=== PATIENT | female | born 1965 | race Asian ===

== ENCOUNTER → 2017-02-10 | Outpatient (CLI) | payer OTHER | LOC: FIMAGING 08:37 | PROVIDERS: ATTEND Family Medicine | DX: Z12.31 Encounter for screening mammogram for malignant neoplasm of breast (principal) | CPT/HCPCS: G0202 ==

== ENCOUNTER → 2017-08-19 | Outpatient (CLI) | payer OTHER | LOC: BMCIMAGING 07:51 | PROVIDERS: ATTEND Internal Medicine Rheumatology | DX: M25.561 Pain in right knee (principal); M25.562 Pain in left knee; M06.871 Other specified rheumatoid arthritis, right ankle and foot; M06.872 Other specified rheumatoid arthritis, left ankle and foot; M06.841 Other specified rheumatoid arthritis, right hand; M06.842 Other specified rheumatoid arthritis, left hand ==

== ENCOUNTER → 2017-09-15 | Outpatient (CLI) | payer OTHER | LOC: FIMAGING 07:14 | PROVIDERS: ATTEND Internal Medicine | DX: K76.89 Other specified diseases of liver (principal) ==

== ENCOUNTER → 2017-09-23 | Outpatient (CLI) | payer OTHER ==
[~2017-09-23] MED LIST: GADOBUTROL 10 ML VIAL IVP ONE
== END ==
LOC: FIMAGING 14:59
PROVIDERS: ATTEND Physician Assistant
DX: D44.0 Neoplasm of uncertain behavior of thyroid gland (principal); G95.0 Syringomyelia and syringobulbia; M50.30 Other cervical disc degeneration, unspecified cervical region; Z86.011 Personal history of benign neoplasm of the brain; Z98.890 Other specified postprocedural states
CPT/HCPCS: A9585

== ENCOUNTER → 2017-10-05 | Outpatient (CLI) | payer OTHER | LOC: FIMAGING 12:50 | PROVIDERS: ATTEND Internal Medicine | DX: Z13.820 Encounter for screening for osteoporosis (principal); Z78.0 Asymptomatic menopausal state; M81.0 Age-related osteoporosis without current pathological fracture; D25.2 Subserosal leiomyoma of uterus; N83.201 Unspecified ovarian cyst, right side ==

== ENCOUNTER 2017-11-08 06:43 | Observation (INO) | payer OTHER ==
[2017-11-08] MEDS ORDERED: LR 1,000 ML IV ONE (06:58)
[2017-11-08] MEDS ORDERED: BUPIVACAINE/EPI 0.5% 30 ML SDV ONE (07:45)
--- NOTE | 2017-11-08 07:56 | PDHPUP ---
History & Physical Update H&P update statement: This history and physical update is based on an assessment of the patient which was completed after admission or registration (within 24 hours), but prior to the surgery/procedure. H&P update: H&P reviewed & patient examined, no change in patient's condition since H&P completed
[2017-11-08] MEDS ORDERED: MIDAZOLAM 2 MG/2 ML VIAL ONE (08:00)
[2017-11-08] MEDS ORDERED: MIDAZOLAM 2 MG/2 ML VIAL IVP ONE (08:02)
--- NOTE | 2017-11-08 08:02 | PDANEPAE ---
ANE History of Present Illness 52 yo for thyroidectomy ANE Past Medical History - Cardiovascular History Hx Hypertension: No Hx Arrhythmias: No Hx Chest Pain: No Hx Coronary Artery / Peripheral Vascular Disease: No Hx CHF / Valvular Disease: No Hx Palpitations: No - Pulmonary History Hx COPD: No Hx Asthma/Reactive Airway Disease: No Hx Recent Upper Respiratory Infection: No Hx Oxygen in Use at Home: No Hx Sleep Apnea: No Sleep Apnea Screening Result - Last Documented: Negative - Neurologic History Hx Cerebrovascular Accident: No Hx Seizures: No Hx Dementia: No Neurologic History Comment: hx of brain surgery for benign meningioma - Endocrine History Hx Diabetes: Yes Endocrine History Comment: thyroid mass- biopsy showed possibly cancerous. elevated hgbA1c's on metformin - Renal History Hx Renal Disorders: No - Liver History Hx Hepatic Disorders: No - Neurological & Psychiatric Hx Hx Neurological and Psychiatric Disorders: No - Cancer History Hx Cancer: No - Congenital Disorder History Hx Congenital Disorders: No - GI History Hx Gastrointestinal Disorders: No - Other Health History Other Health History: wears glasses. RA - Chronic Pain History Chronic Pain: Yes (left shoulder pain) - Surgical History Prior Surgeries: bilateral bunionectomy 05/2017. 2008 benign meningioma removed from brain. 2005 right shoulder scope. 2002 right knee scope from skiing accident. colonoscopy this past year ANE Review of Systems Review of Systems: - Exercise capacity METS (RN): 5 METS ANE Patient History - Allergies Allergies/Adverse Reactions: No Allergies [NKDA] Allergy (Verified 11/01/17 13:13) - Home Medications Home medications: home medication list seen and reviewed Home Medications: Methotrexate IM [Methotrexate IM Syringe (RX)] 0.8 ml IM 03/03/12 [Last Taken ] Herbals/Supplements -Info Only 11/01/17 [Last Taken 11/01/17] Latanoprost 11/01/17 [Last Taken 11/07/17] Metformin HCl 11/01/17 [Last Taken 11/02/17] - NPO status NPO Status: no food or drink >8 hours NPO Since - Liquids (Date): 11/08/17 NPO Since - Liquids (Time): 06:00 NPO Since - Solids (Date): 11/07/17 NPO Since - Solids (Time): 20:30 - Anes Hx Anes Hx: no prior problems - Smoking Hx Smoking Status: Never smoked - Family Anes Hx Family Hx Anesthesia Complications: none ANE Labs/Vital Signs - Vital Signs Blood Pressure: 109/78 Heart Rate: 69 Respiratory Rate: 16 O2 Sat (%): 97 Height: 5 ft 7 in Weight: 73.482 kg ANE Physical Exam - Airway Mallampati Score: Class 2 Mouth exam: normal dental/mouth exam - Pulmonary Pulmonary: no respiratory distress - Cardiovascular Cardiovascular: regular rate and rhythym - ASA Status ASA Status: II ANE Anesthesia Plan Anesthesia Plan: general endotracheal anesthesia
[2017-11-08] MEDS ORDERED: REMIFENTANIL HCL 1 MG VIAL ONE ×2 (08:09→10:09)
[2017-11-08] MEDS ORDERED: fentaNYL 100 MCG/2 ML INJ ONE ×2 (08:09)
[2017-11-08] MEDS ORDERED: PROPOFOL/EMULSION 500 MG/50 ML BOTTLE IV ONE ×2 (08:10→10:09)
[2017-11-08] MEDS ORDERED: ROCURONIUM 100 MG/10 ML VIAL ONE (08:13)
[2017-11-08] MEDS ORDERED: DEXAMETHASONE 4 MG/ML VIAL ONE (08:14)
[2017-11-08] MEDS ORDERED: ONDANSETRON 4 MG/2 ML VIAL ONE (08:14)
[2017-11-08] MEDS ORDERED: KETOROLAC 30 MG/1 ML SDV ONE (10:45)
[2017-11-08] MEDS ORDERED: ONDANSETRON 4 MG/2 ML VIAL IVP PRN ×2 (11:20→12:07)
[2017-11-08] MEDS ORDERED: fentaNYL 100 MCG/2 ML INJ IVP PRN (11:20)
[2017-11-08] MEDS ORDERED: HYDROmorphONE/DILAUDID 1 MG/ML INJ IVP PRN (11:20)
[2017-11-08] MEDS ORDERED: NALOXONE HCL 0.4 MG/ML INJ IVP PRN (11:20)
[2017-11-08] MEDS ORDERED: PROMETHAZINE HCL 25 MG/ML INJ IVP PRN (11:20)
[2017-11-08] MEDS ORDERED: ZOLPIDEM TARTRATE 5 MG TAB PO PRN (12:07)
[2017-11-08] MEDS ORDERED: HYDROCODONE/APAP 5/325 TAB PO PRN (12:07)
[2017-11-08] MEDS ORDERED: ACETAMINOPHEN 325 MG TAB PO PRN (12:07)
[2017-11-08] MEDS ORDERED: HYDROCODONE/APAP 5/325 TAB ONE (12:22)
--- NOTE | 2017-11-08 13:28 | POSTANESTH ---
Post Anesthetic Evaluation Cardiovascular Status: Normal, Stable Respiratory Status: Tx Decrease in SpO2 Level of Consciousness/Mental Status: Can Participate in Eval Pain Control: Adequate, Prn Tx Ordered Nausea/Vomiting Control: Adequate, Prn Tx Ordered Complications Possibly Related to Anesthesia: None Noted
[2017-11-08] MEDS: KETOROLAC 15 MG/1 ML SDV IVP SCH (18:08)
--- NOTE | 2017-11-08 20:34 | GOP ---
[f rep st] OPERATIVE REPORT DATE OF OPERATION: 11/08/2017 SURGEON: Jason Frazier MD SENIOR SYSTEMS ADMINISTRATOR: Keri Baldwin PA-C. ANESTHESIA: General. ANESTHESIOLOGIST: Dr. Fierro. PREOPERATIVE DIAGNOSIS: Papillary thyroid cancer. POSTOPERATIVE DIAGNOSIS: Papillary thyroid cancer. PROCEDURE PERFORMED: Total thyroidectomy with central lymph node dissection and selective left neck dissection. FINDINGS: See below. INDICATIONS: 52-year-old female with a recently diagnosed left neck papillary thyroid cancer. She has found to have multiple abnormal lymph nodes scattered throughout her distal carotid sheath as well as suprasternal space. She is undergoing a total thyroidectomy with lymph node dissection at this time. Surgical risks and benefits were explained of bleeding, infection, tumor recurrence, need for additional surgical intervention, laryngeal nerve injury, hypoparathyroidism, hypothyroidism, thoracic duct injury, as well as others. All questions were answered. She desires to proceed. A surgical coordinator is standard and necessary and customary for the safe performance of this procedure. DESCRIPTION OF PROCEDURE: General anesthesia was induced. The neck was pre- injected with 0.5% Marcaine along the low collar incision as well as bilateral anterior cervical plexus. A low collar incision was created. The platysma muscle was divided. The subplatysmal skin flaps were created to the cricothyroid membrane, clavicles, sternocleidomastoid muscles laterally. The thyroidectomy was initially completed. The left superior vascular pedicle circumferentially was encompassed and divided at the base of the thyroid lobe itself. The upper pole parathyroid gland was identified and away from the thyroid capsule. The middle thyroid vein was divided. There were multiple pathologic-appearing small lymph nodes coursing along the left paratracheal space. These were engrossing the recurrent laryngeal nerve. Significant time was spent the nodes and stripping them inferiorly, maintaining the nerve intact throughout the dissection. The nerve was able to be traced from the mediastinum up into the thyroid cartilage upon completion and noted to be intact along with all of its branch points. The left inferior parathyroid gland was unable to be identified, given the matted set of nodes. The dissection was taken further toward the lower pole of the left thyroid lobe. The vascular pedicle was circumferentially encompassed and divided with the ultrasonic dissector, as had the branches of the superior thyroid artery abutting the thyroid capsule. The contents were taken down to the mediastinum where the left thymus gland was brought up in the operative field and removed intact with the palpable nodes. At this point, the gland was divided from lateral to medial and off the carotid sheath. Baker ligaments were divided and the tracheal dissection completed. The pyramidal lobe was divided up toward the level of the hyoid bone. All surrounding fibrofatty tissue was left with the specimen at this location. The gland was taken toward the contralateral neck where a similar dissection was completed. The right recurrent laryngeal nerve was notably small in caliber and easily preserved throughout the entire dissection. The dissection was taken from top down, encompassing the superior thyroid pole, which was divided with the ultrasonic dissector as was the middle thyroid vein. Having seen upper and lower pole parathyroid glands, these were from the capsule and left intact. The lower pole vascular pedicle was divided with the ultrasonic dissector and the dissection further moved down toward the mediastinum. Multiple firm pathologic nodes were present at this location as well. These were all stripped down toward the level of the innominate vein. The thyroid, including its lymph nodes, and additional central neck contents were all removed from the neck cavity, encompassing all visible level 6 and 7 nodes. The left carotid sheath was subsequently opened. The jugular vein was circumferentially encompassed. The lateral neck tissues were subsequently dissected out. Levels 5 in 4 were completely stripped up to the level of the cricothyroid membrane. The subclavian vein was identified as was the thoracic duct. The phrenic nerve was identified and preserved. The tissues were all stripped off the carotid sheath and the posterior neck borders. There were no suspicious nodes present within level 4. I opted not to proceed further with level 3 dissection, having seen no suspicious adenopathy at this level on preoperative ultrasonography or any further palpable nodes either. The contents were completely stripped away from the neck cavity and sent as final specimens. Satisfactory hemostasis was assured throughout the bilateral bimal neck cavities. No chyle leak was noted coming to the thoracic duct with Valsalva maneuver. Casandra was placed throughout bilateral bimal neck cavities. Satisfactory hemostasis was completely assured. The neck was closed in layers with absorbables by Dermabond without the use of a drain. The patient was extubated in the operating room and taken to recovery in good condition. /[id number]/MODL MTDD
[2017-11-08] MEDS ORDERED: OXYCODONE/APAP 5/325 TAB PO PRN (21:15)
[2017-11-09] MEDS: KETOROLAC 15 MG/1 ML SDV IVP SCH ×2 (00:05→04:26)
[2017-11-09 07:08] VITALS: BP 108/79
--- NOTE | 2017-11-09 07:37 | SOAPPROG ---
SOAP Progress Note Assessment/Plan: Assessment:no overnight issues. min pain. no numbness or tingling. some chest tightness. avss. comfortable. neck soft, min induration. no chovstek. ca 9.2 doing great. home today. has synthroid at home. Plan: 11/09/17 07:34 Objective: Vital Signs Temp Pulse Resp BP Pulse Ox 36.8 C 71 16 108/79 95 11/09/17 07:05 11/09/17 07:05 11/09/17 07:05 11/09/17 07:05 11/09/17 07:05 11/08/17 11/09/17 11/10/17 05:59 05:59 05:59 Intake Total 2010 Output Total 100 Balance 1910 ICD10 Worksheet Patient Problems: Problems Problem Status Onset Thyroid cancer Acute - ICD10 Problem Qualifiers (1) Thyroid cancer
[2017-11-09] MEDS ORDERED: LEVOTHYROXINE 100 MCG TAB PO SCH (07:45)
== END 2017-11-09 10:55 | disposition home or self-care (01) ==
LOC: F3N 06:43 → F3E 12:45
PROVIDERS: ADMIT Surgery; ATTEND Surgery
PROC: 07B20ZX Excision of Left Neck Lymphatic, Open Approach, Diagnostic (ICD-10-PCS; principal; 2017-11-08 08:15)
PROC: 0JB50ZX Excision of Left Neck Subcutaneous Tissue and Fascia, Open Approach, Diagnostic (ICD-10-PCS; principal; 2017-11-08 08:15)
PROC: 0GTK0ZZ Resection of Thyroid Gland, Open Approach (ICD-10-PCS; principal; 2017-11-08 08:15)
DX: C73 Malignant neoplasm of thyroid gland (principal); M05.40 Rheumatoid myopathy with rheumatoid arthritis of unspecified site; Z86.011 Personal history of benign neoplasm of the brain
CPT/HCPCS: 60252; G0378; J1100; J1885; J2250; J2405; J2704; J3010

== ENCOUNTER → 2018-01-25 | Outpatient (CLI) | payer OTHER | LOC: FIMAGING 09:44 | PROVIDERS: ATTEND Internal Medicine Endocrinology, Diabetes & Metabolism | PROC: CW1NGZZ Planar Nuclear Medicine Imaging of Whole Body using Iodine 131 (I-131) (ICD-10-PCS; principal; 2018-01-25) | DX: Z08 Encounter for follow-up examination after completed treatment for malignant neoplasm (principal); C73 Malignant neoplasm of thyroid gland | CPT/HCPCS: 78018; 79005; A9517 ==

== ENCOUNTER → 2018-04-27 | Outpatient (CLI) | payer OTHER | LOC: FIMAGING 09:25 | PROVIDERS: ATTEND Internal Medicine Endocrinology, Diabetes & Metabolism | DX: C73 Malignant neoplasm of thyroid gland (principal); R59.0 Localized enlarged lymph nodes; Z98.890 Other specified postprocedural states; Z90.89 Acquired absence of other organs ==

== ENCOUNTER → 2018-07-20 | Outpatient (CLI) | payer OTHER | LOC: FIMAGING 15:48 | PROVIDERS: ATTEND Internal Medicine Endocrinology, Diabetes & Metabolism | DX: C73 Malignant neoplasm of thyroid gland (principal) ==